=== PATIENT | male | born 1965 | race African-American/Black ===

== ENCOUNTER 2017-05-25 10:00 | Inpatient (IN) | payer MEDICARE, OTHER ==
[~2017-05-25] VITALS: Ht 162.6 cm; Wt 59.0 kg
--- NOTE | ~2017-05-25 | PA ---
Unit #: [id number] #: [id number] Patient: JOSESITO GONZALEZ [id number] [facility] [address] [place] [address] [id number] MR#: [id number] NAME: JOSESITO GONZALEZ. ROOM: [facility] Age: 51 Sex: M Admission Date: 05/25/2017 : 1965 Date of Assessment: 05/26/2017 Attending Physician: Dustin Ellis M.D. Admitting Physician: Dustin Ellis M.D. PSYCHIATRIC ASSESSMENT IDENTIFYING INFORMATION The patient is a 51-year-old single male who is admitted to the [address] [place] [address] for alcohol detox. CHIEF COMPLAINT Drinking. INFORMANT The patient, reliability is good. HISTORY OF PRESENT ILLNESS The patient is a 51-year-old homeless male admitted with abuse of alcohol. The patient reports that he is drinking up to a gallon of hard liquor on a daily basis. He denies abuse of other psychoactive substances. He denies any recent changes in mood, sleep or appetite. He denies suicidal or homicidal ideation. He is requesting a referral for residential chemical dependence treatment upon discharge from the hospital. The patient reports that he was last treated for alcohol dependence at the [facility] approximately five years ago but did maintain sobriety for any significant period of In the meantime. He states that he is currently homeless. PAST PSYCHIATRIC HISTORY As above. PAST MEDICAL HISTORY The patient reports that he had some difficulties swallowing but otherwise reports no medical issues. MEDICATION None. ALLERGIES None. FAMILY HISTORY Noncontributory. SOCIAL HISTORY The patient is currently homeless. He reports alcohol use as noted previously. MENTAL STATUS EXAMINATION At this time reveals the patient to be a well-developed, well-nourished Unit #: [id number] #: [id number] Patient: JOSESITO GONZALEZ male, appearing his stated age. He is in no apparent physical distress at the time of examination. He is awake, alert, and oriented in all spheres. His mood is mildly dysphoric. His affect congruent. Speech is generally relevant and coherent. There are no gross deficits in memory or cognition noted. Intelligence is judged to be in the average range based on fund of knowledge. The patient is cooperative throughout the interview. He is currently denying suicidal or homicidal ideation or psychotic features. Judgment and insight appear to be intact. ASSETS AND LIABILITIES ASSETS: Motivation for change. LIBILITIES: Lack of resources, homelessness. ADMITTING DIAGNOSES Alcohol use disorder. PSYCHIATRIC PLAN/TREATMENT GOALS The patient remains hospitalized for safety and stabilization. A routine detoxification protocol has been initiated. The patient will participate in appropriate carvalho and milieu activities with an estimate length of stay in the hospital of three to five days. Dictated by... Dustin Ellis M.D. NOVA/ria TD: 05/27/2017 00:27 JOB #: [id number] PSYCHIATRIC ASSESSMENT Page 1 of 1 X Dustin Ellis MD X PSYCHIATRIC ASSESSMENT
--- NOTE | ~2017-05-25 | CO ---
Unit #: [id number] #: [id number] Patient: LAZARO GONZALEZ [id number] [place] [address] [id number] I MR#: [id number] NAME: LAZARO GONZALEZ. ROOM: [facility] Age: 51 Sex: M Admission Date: 05/25/2017 : 1965 Attending Physician: Dustin Ellis M.D. Consultation Date: 05/26/2017 CONSULTATION REPORT HISTORY OF PRESENT ILLNESS Lazaro has complaints of sore throat. 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 It causes knots to appear in his throat and make it difficult to swallow, and these only appear when it is cold outside. He reports that his mother had this condition as well. He has been followed by a specialist and there is no treatment available at this time. Currently, he has no complaints. PHYSICAL EXAMINATION CARDIAC: Regular rate and rhythm. No murmurs, gallops, or rubs. RESPIRATORY: Clear to auscultation bilaterally. ORAL: No posterior oropharynx, hyperemia or exudate. NECK: No lymphadenopathy. No palpable masses or nodules. ASSESSMENT AND PLAN Sore throat. It sounds that this is not an acute condition and currently Lazaro has no complaints. Please monitor and notify if any further evaluation is needed. Dictated by... Osmin Victoria/anne TD: 05/28/2017 02:05 JOB #: [id number] CONSULTATION REPORT Page 1 of 1 X SHRUTI ROCHA APRN CONSULTATION REPORT
--- NOTE | ~2017-05-25 | A ---
[facility] Nutrition Therapy DATE: 05/27/17 Patient: JOSESITO Stoner CARLOS Physician: DIMA Address: NO PERMANENT ADDRESS Room/Bed: [address], Zip: [place] [address] Admit Date: 05/25/17 Date of : [birth year] Height: 5 4 Weight: [phone] NUTRITIONAL ASSESSMENT: REASON: PT SEEN FOR 1 POINT NUTRITION RISK SCORE FOR CHEWING/SWALLOWING DIFFICULTY. ADMITTED FOR ETOH ABUSE, SI PMH: WITHDRAWL SZ Anthropometrics: PT IS 51 YO MALE. HT 5'4", WT 130LBS, BMI 22. IBW 130, 100%IBW Labs: AST: 79H, ALT: 107H Meds: DETOX PROTOCOL, MVI Assessment: PT LIVES WITH ROOMMATE. PT REPORTS DRINKING 1/2 GAL ETOH/2 DAYS, AND USES CRACK DAILY. PT WAS IN GROUP MEETING WHEN VISITED. PER CHART, PT'S APPETITE IS GOOD AND HAS NOT HAD RECENT WEIGHT CHANGE. PT IS CURRENTLY ON REGULAR DIET WITH NO CAFFEINE AND FLUIDS ENCOURAGED. Dx: CHEWING/SWALLOWING DIFFICULTY R/T CURRENT CONDITION AEB PT REPORT OF THROAT IRRITATION THAT MAKES SWALLOWING DIFFICULT. Intervention: REGULAR DIET, PSYCH, MEDS PER MD Monitoring, Evaluation and Goals: 1. ADEQUATE PO INTAKE >50% OF MEALS 2. MAINTAIN HEALTHY WEIGHT MONITOR: WEIGHT, PO/FLUID INTAKE Recommendations: 1. ENCOURAGE ADEQUATE PO INTAKE. 2. IF PT HAS TROUBLE EATING HARD FOODS, MAY DOWNGRADE DIET TO MECHANICAL SOFT. RD WILL FOLLOW UP PER PROTOCOL AND PRN. PT IS AT MILD NUTRITION RISK. Respectfully, ELISHA DE LA GARZA RD, LD [facility] Nutrition Therapy DATE: 05/27/17 Patient: JOSESITO Herbie GONZALEZ Physician: DIMA Address: NO PERMANENT ADDRESS Room/Bed: [address], Zip: [place] [address] Admit Date: 05/25/17 Date of : [birth year] Height: 5 4 Weight: [phone] cc: client file
--- NOTE | ~2017-05-25 | HP ---
Unit #: [id number] #: [id number] Patient: LAZARO GONZALEZ [id number] [place] [address] [id number] MR#: [id number] NAME: LAZARO GONZALEZ. ROOM: [facility] Age: 51 Sex: M Admission Date: 05/25/2017 : 1965 Attending Physician: Dustin Ellis M.D. Admitting Physician: Dustin Ellis M.D. HISTORY AND PHYSICAL History and physical completed on 05/26/2017. HISTORY OF PRESENT ILLNESS Lazaro is a 51-year-old male, admitted on 05/25/2017 [facility] for detox from alcohol. PAST MEDICAL HISTORY Congenital throat condition. PAST SURGICAL HISTORY None. SOCIAL HISTORY Occasional tobacco use, binge alcohol use, and occasional cocaine use, he is currently (1)____. FAMILY HISTORY Noncontributory. REVIEW OF SYSTEMS CONSTITUTIONAL: No fever or chills. HEENT: Denies any sore throat, ear pain or runny nose. CARDIOVASCULAR: Denies chest pain, irregular heart rhythm or palpitations. CHEST: Denies shortness of breath or cough. No hemoptysis. GASTROINTESTINAL: Denies nausea, vomiting, diarrhea or chronic constipation. ENDOCRINE: Denies history of increased thirst or urination. No recent significant weight loss or gain. GENITOURINARY: Denies dysuria, frequency, or hematuria. SKIN: Denies any rashes. HEMATOLOGIC: Denies history of increased bleeding or bruising. MUSCULOSKELETAL: Denies any hot, swollen joints. No generalized muscle pain. NEUROLOGIC: Denies problems with vision or speech. No frequent, severe headaches. No numbness, tingling or weakness in any extremities. Denies loss of bladder or bowel control. CURRENT MEDICATIONS None. ALLERGIES None. Unit #: [id number] #: [id number] Patient: LAZARO GONZALEZ PHYSICAL EXAMINATION GENERAL: Alert, oriented, in no acute distress. VITAL SIGNS: Blood pressure 101/71, heart rate 73, respirations 18, and temperature 98.2. HEIGHT: 5 feet 4 inches. WEIGHT: 130 pounds. SKIN: Warm and dry without rash or lesion. HEENT: Normocephalic. TMs not viewed. Oral and nasal passages clear. Conjunctivae clear. PERRLA. EOMs intact. NECK: Supple without lymphadenopathy or thyromegaly. HEART: Regular rate and rhythm without murmur. LUNGS: Clear. ABDOMEN: Soft, nontender. : Not done. EXTREMITIES: No evidence of cyanosis, clubbing or edema. Moves all without focal deficit. NEUROLOGICAL: Grossly within normal limits. Cranial Nerves: II: Visual calle are intact. III, IV AND : Extraocular movements are intact. Pupils are equal, round and reactive to light. V: Facial sensation is grossly normal. VII: Facial movements and expression are normal. VIII: Auditory acuity grossly intact. IX, X: Uvula is midline. Phonation is normal. XI: Patient shrugs shoulders and turns head normally. XII: Tongue protrudes in the midline. Sensory and Motor Function: Sensory and motor sensation is grossly normal. Motor: moves all extremities well. Coordination: Gait is normal. Deep Tendon Reflexes: Intact. IMPRESSION Psychiatric admission. RECOMMENDATIONS Psychiatric, per psychiatrist. MEDICAL No contraindications to participating in facility's activities. MEDICAL PROGNOSIS Good. MEDICAL CONDITION Stable. Dictated by... Osmin Victoria/yao TD: 05/27/2017 11:40 JOB #: [id number] Unit #: [id number] #: [id number] Patient: LAZARO GONZALEZ HISTORY AND PHYSICAL Page 1 of 1 X SHRUTI ROCHA APRN HISTORY AND PHYSICAL
--- NOTE | ~2017-05-25 | DS ---
Unit #: [id number] #: [id number] Patient: JOSESITO GONZALEZ [id number] [facility] [address] [place] [address] [id number] MR#: [id number] NAME: JOSESITO GONZALEZ. ROOM: [facility] Age: 51 Sex: M Admission Date: 05/25/2017 : 1965 Discharge Date: 05/29/2017 Attending Physician: Dustin Ellis M.D. DISCHARGE SUMMARY REASON FOR ADMISSION The patient is a 51-year-old male, admitted for alcohol detox. HOSPITAL COURSE The patient was admitted to the [facility] unit and placed on routine detoxification protocol for alcohol. His stay in the hospital was a brief and uneventful one with his detox going smoothly and the patient actively participated within therapeutic milieu. By 05/29/2017, the patient was in bright spirits and requested discharge and it was so ordered. FINAL DIAGNOSES Alcohol use disorder. DISPOSITION ON DISCHARGE The patient is discharged on no psychotropic or other medications. FOLLOWUP Followup will take place through the auspices of community mental health resources. The patient declines an offer of CD-IOP referral. PROGNOSIS His prognosis is fair. Dictated by... Dustin Ellis M.D. CB/anne TD: 05/29/2017 18:04 JOB #: [id number] DISCHARGE SUMMARY Page 1 of 1 X Dustin Ellis MD X DISCHARGE SUMMARY
--- NOTE | ~2017-05-25 | PN ---
Unit #: [id number] #: [id number] Patient: JOSESITO GONZALEZ [id number] [facility] [address] [place] [address] [id number] MR#: [id number] NAME: JOSESITO GONZALEZ. ROOM: [facility] Age: 51 Sex: M Admission Date: 05/25/2017 : 1965 Attending Physician: Dustin Ellis M.D. Admitting Physician: Edinson Hampton PROGRESS NOTES DATE 05/28/2017 DISCUSSION The patient's detox continues uneventfully. Should he sustain progress discharge could take place in the next day or so. Dictated by... Dustin Ellis M.D. CB/ira TD: 05/28/2017 22:21 JOB #: [id number] MAUDE PROGRESS NOTES Page 1 of 1 X Dustin Ellis MD X PROGRESS NOTE
--- NOTE | ~2017-05-25 | PN ---
Unit #: [id number] #: [id number] Patient: JOSESITO GONZALEZ [id number] [facility] [address] [place] [address] [id number] I MR#: [id number] NAME: JOSESITO GONZALEZ. ROOM: [facility] Age: 51 Sex: M Admission Date: 05/25/2017 : 1965 Attending Physician: Dustin Ellis M.D. Admitting Physician: Edinson Hampton PROGRESS NOTES DATE 05/27/2017 DISCUSSION The patient is abed resting comfortably, staff reports no management issues, we continue to await word regarding possible referral for residential chemical dependence treatment. Dictated by... Dustin Ellis M.D. CB/yao TD: 05/28/2017 06:15 JOB #: [id number] MAUDE PROGRESS NOTES Page 1 of 1 X Dustin Ellis MD X PROGRESS NOTE
[2017-05-26 11:22] LABS: ALBUMIN SERUM 3.7 g/dL (3.5-5.0); BILIRUBIN,TOTAL 0.7 mg/dL (0.2-2.0); BUN/CREATININE RATIO 12.72; CREATININE SERUM 1.1 mg/dL (0.6-1.4); GLOM FILT RATE Estimated 89.6 mL/min (>60); PROTEIN TOTAL SERUM 6.8 g/dL (6.0-8.3)
[2017-05-26 12:38] LABS: BASOPHIL% 0.6 % (0-2.5); EOSINOPHIL# 0.1 X10e3 (0-0.7); EOSINOPHIL% 0.9 % (0.0-7.0); HEMATOCRIT 43.2 % (38.0-50.0); HEMOGLOBIN 15.3 gm/dL (13.0-16.0); LYMPHOCYTE# 1.6 X10e3 (1.0-3.5); LYMPHOCYTE% 28.8 % (17.0-45.0); MEAN CELL VOLUME 91.1 FL (83-96); MEAN CORPUSCULAR HEMOGLOBIN 32.4 PG (28-34); MEAN CORPUSCULAR HGB CONC 35.5 g/dL (30-36); MEAN PLATELET VOLUME 8.2 FL (6.5-11.5); MONOCYTE# 0.6 X10e3 (0-1.0); MONOCYTE% 10.2 % (3.0-12.0); NEUTROPHIL# 3.4 X10e3 (1.5-7.1); NEUTROPHIL% 59.5 % (40-75); PLATELET COUNT 214 X10e3 (140-420); RED BLOOD COUNT 4.74 X10e (3.90-5.60); RED CELL DISTRIBUTION WIDTH 15.7 % (11.0-15.5); WHITE BLOOD COUNT 5.7 X10e3 (4.0-10.5)
[2017-05-26 12:46] LABS: DIFF IND NO
[2017-05-27 12:37] LABS: URINE APPEARANCE CLEAR; URINE BILIRUBIN NEG (NEG); URINE BLOOD NEG (NEG); URINE COLOR DK YELLOW; URINE GLUCOSE NEG (NEG); URINE KETONE NEG (NEG); URINE LEUKOCYTE ESTERASE NEG (NEG); URINE NITRATE NEG (NEG); URINE PH 7.5 (5-8); URINE PROTEIN NEG (NEG); URINE SPECIFIC GRAVITY 1.017 (1.003-1.035)
[2017-05-27 13:55] LABS: AMPHETAMINE NEG (NEG); BARBITURATES NEG (NEG); BENZODIAZEPINES NEG (NEG); COCAINE POS (NEG); MARIJUANA NEG (NEG); OPIATES NEG (NEG); TRICYCLIC ANTIDEPRESSANTS NEG (NEG); U METHADONE NEG (NEG)
== END 2017-05-29 16:00 | DRG 897 ==
LOC: P2L 13:33 → P1E 13:33
PROVIDERS: Specialist
PROC: HZ2ZZZZ Detoxification Services for Substance Abuse Treatment (ICD-10-PCS; principal; 2017-05-25)
DX: F10.10 Alcohol abuse, uncomplicated (principal); Z59.0 Homelessness
CPT/HCPCS: 80053; 80307; 81003; 85025; 86592